=== PATIENT | female | born 1960 | race Two or more races ===

== ENCOUNTER → 2024-12-25 | Outpatient (CLI) | payer MEDICARE, SELFPAY ==
--- NOTE | 2024-12-25 13:45 | XR_ITS ---
Examination: Screening digital mammography, bilateral Computer aided detection 3-D breast Tomosynthesis, bilateral Date and time of exam: December 25, 2024 1321 hours Indication: Screening Technique: Nonmagnified MLO, CC views of the breasts to been obtained, reconstructed from 3-D Tomosynthesis images. R2 computer aided detection program utilized for evaluation of suspicious masses and/or abnormal calcifications. 3-D Tomosynthesis images obtained. Findings: Scattered areas of fibroglandular density. Scar formation upper inner left breast Benign calcifications. No suspicious masses Breast biopsy marker inner upper left breast Impression: BI-RADS category II: Benign Findings. Recommend 1 year follow-up mammogram.
== END | disposition home or self-care (01) ==
DX: Z12.31 Encounter for screening mammogram for malignant neoplasm of breast (principal); R92.323 Mammographic fibroglandular density, bilateral breasts; R92.1 Mammographic calcification found on diagnostic imaging of breast
CPT/HCPCS: 77063; 77067

== ENCOUNTER → 2025-05-07 | Outpatient (CLI) | payer MEDICARE, SELFPAY ==
--- NOTE | 2025-05-07 09:37 | XR_ITS ---
EXAMINATION: Sinus series 3 views TECHNIQUE: Ankit Zamudio lateral sinus series 3 views Date and time: May 07, 2025, 1039 hours INDICATIONS: Sinus congestion and pressure pain 2 weeks. FINDINGS: Significant opacity in the frontal ethmoid air cells Mucosal thickening the lateral margins of the maxillary antra No retention cysts No fluid levels IMPRESSION: Significant chronic frontal ethmoid sinusitis
--- NOTE | 2025-05-07 09:37 | XR_ITS ---
EXAMINATION: Lumbar spine 3 views TECHNIQUE: AP lateral: Lateral lower lumbar spine 3 views Date and time: May 07, 2025, 10:36 a.m. INDICATION: Low back pain several months. FINDINGS: Satisfactory alignment lumbar vertebral bodies on the lateral view No lumbar fracture Moderate to advanced disc narrowing L4-L5, L5-S1 No cortical bone destruction IMPRESSION: Moderate to advanced degenerative disc disease L4-L5, L5-S1
== END | disposition home or self-care (01) ==
DX: M51.360 Other intervertebral disc degeneration, lumbar region with discogenic back pain only (principal); M51.370 Other intervertebral disc degeneration, lumbosacral region with discogenic back pain only; J32.8 Other chronic sinusitis
CPT/HCPCS: 70220; 72100